=== PATIENT | female | born 1995 | race Caucasian/White ===

== ENCOUNTER 2018-04-11 05:55 | Day surgery (SDC) | payer OTHER ==
[2018-04-11] MEDS ORDERED: MIDAZOLAM 1 MG/ML 2 ML INJ ×2 (07:48)
[2018-04-11] MEDS ORDERED: FENTAnyl 50 MCG/ML VIAL (07:49)
== END 2018-04-11 11:27 | disposition home or self-care (01) ==
LOC: GIL 05:55
DX: K29.30 Chronic superficial gastritis without bleeding (principal)
CPT/HCPCS: 43239; 88305; 88312